=== PATIENT | male | born 1935 | race Caucasian/White ===

== ENCOUNTER 2019-04-15 11:17 | Emergency (ER) | payer OTHER ==
[2019-04-15 11:37] VITALS: BP 147/70; PULSE 55; TEMP 98.5; BMI 23.5
--- NOTE | 2019-04-15 12:03 | PDOC ---
History of Present Illness - General Chief Complaint: Injury Stated Complaint: RIGHT LEG INJURY Time Seen by Provider: 04/15/19 11:40 - History of Present Illness Initial Comments: 04/15/19 17:15 Chief complaint: Pain and swelling right leg HPI: Approximately 5 days ago, the patient banged his milligan, pain and swelling have persisted. There was minor bleeding from abrasions. Review of systems: Denies fever/chills, headache, body aches, malaise, fatigue, chest pain, shortness of breath, abdominal pain, nausea, vomiting, diarrhea, visual or focal neurologic symptoms, unsteadiness of gait, distal numbness tingling pain or weakness in the ankle or foot. Past medical history: Coronary artery disease, multiple stents, maintained on Plavix. Social/family history: No smoking alcohol or nonprescription drugs. Active and without disability. Planning an airplane trip this Sunday to [place] Physical exam: Alert and oriented well-developed well-nourished no acute distress cheerful and cooperative Afebrile, vital signs normal PERRLA, fundi benign, ENT clear Neck supple without bruit mass or nodes Chest clear CV regular without murmur rub or gallop Abdomen benign Neurological intact Right leg: There is erythema, induration ecchymosis, mild tenderness, and fluctuance measuring approximately 6 cm in diameter over the anterior tibia, mid. There are healing abrasions with scab formation x2, approximately 1 cm in diameter. There is 2+ edema of the foot ankle and calf to the knee. There is no deformity or tenderness of the knee ankle or foot. Pulses are full. No distal sensory or motor deficits. Assessment: Contusion, hematoma, possible early cellulitis, rule out DVT Plan: CBC and chemistries, venous Doppler, x-ray, and further evaluation depending on results Past History - Past Medical History Allergies/Adverse Reactions: Allergies Allergy/AdvReac Type Severity Reaction Status Date / Time Penicillins Allergy Unknown Verified 04/15/19 11:19 Home Medications: Ambulatory Orders Amlodipine Besylate [Norvasc -] 10 mg PO DAILY 04/15/19 Cephalexin Monohydrate [Keflex] 500 mg PO Q6H #30 capsule 04/15/19 Clopidogrel Bisulfate [Clopidogrel] 75 mg PO DAILY 04/15/19 Hydrochlorothiazide 12.5 mg PO DAILY 04/15/19 Metoprolol Succinate [Toprol Xl] 25 mg PO DAILY 04/15/19 Rosuvastatin Calcium [Crestor] 20 mg PO DAILY 04/15/19 Cardiac Disorders: Yes (STENT X4) COPD: No HTN: Yes Hypercholesterolemia: Yes - Surgical History Appendectomy: Yes - Psycho Social/Smoking Cessation Hx Smoking History: Never smoked Hx Alcohol Use: No (RARE) Drug/Substance Use Hx: No *Physical Exam - Vital Signs Last Vital Signs Temp Pulse Resp BP Pulse Ox 98.5 F 55 L 16 147/70 98 04/15/19 11:18 04/15/19 11:18 04/15/19 11:18 04/15/19 11:18 04/15/19 11:18 ED Treatment Course - LABORATORY CBC & Chemistry Diagram: 04/15/19 12:15 04/15/19 12:15 Medical Decision Making - Medical Decision Making 04/15/19 13:44 Venous Doppler negative for DVT X-ray shows soft tissue swelling only, no fracture, no gas. Probable hematoma CBC and chemistries with no significant abnormalities, specifically, white blood count is normal. 04/15/19 17:22 The patient was advised not to travel. Even though he is on Plavix and aspirin , there is still a risk of DVT Although this has the appearance of a contusion and hematoma, early cellulitis cannot be excluded, and empiric antibiotics begun Keflex 500 mg 4 times daily Rest elevation warm compresses and wound care as directed. Soaks should soften the scabs and allow for thorough cleaning and dressing with bacitracin. The wound was dressed today with bacitracin, 4 x 4, and Clarence, and instructions given to he and his for further wound care Advised that if the pain worsens, if there is fever or chills, body aches, malaise, fatigue, or other sign of systemic infection that he should return immediately to the ER. Otherwise follow-up with primary physician in 2 days. Fully ambulatory and in no significant pain or other distress at discharge to follow-up as directed Discharge - Discharge Information Problems reviewed: Yes Clinical Impression/Diagnosis: Traumatic hematoma of right lower leg Condition: Stable Disposition: HOME - Admission No - Additional Discharge Information Prescriptions: Cephalexin Monohydrate [Keflex] 500 mg PO Q6H #30 capsule - Follow up/Referral Referrals: Edvin Pierce MD [Primary Care Provider] - 2 Days - Patient Discharge Instructions Patient Printed Discharge Instructions: DI for Hematoma (Bruise) Additional Instructions: Rest, leg elevation, limited standing and walking, warm compresses 3-4 times a day. Antibiotics as directed Wound care as directed Return to ER if there is increasing pain, drainage from the wound, fever/chills , body aches, or any significant symptoms. Otherwise recheck with your primary physician Dr. Haile in 2 to 3 days. - Post Discharge Activity
[2019-04-15 13:11] LABS: BASO % 0.3 % (0-2.0); EOS % 2.5 % (0-4.5); HEMATOCRIT 40.2 % (35.4-49); HEMOGLOBIN 13.5 GM/dl (11.7-16.9); LYMPH % 34.3 % (8-40); MCHC 33.6 g/dl (32.0-35.9); MEAN CELL VOLUME 104.2 fl (80-96); MONO % 12.6 % (3.8-10.2); NEUT % 50.3 % (42.8-82.8); PLATELET COUNT 204 K/MM3 (134-434); RBC 3.86 M/mm3 (4.00-5.60); RDW 13.2 % (11.9-15.9); WHITE BLOOD COUNT 8.3 K/mm3 (4.0-10.8)
[2019-04-15] MEDS ORDERED: CEPHALEXIN MONOHYDRATE 500 MG CAPSULE (UD) PO ONE (13:17)
[2019-04-15 13:18] LABS: ALBUMIN 4.8 g/dl (3.4-5.0); BILIRUBIN,TOTAL 0.6 mg/dl (0.2-1); CREATININE 0.9 mg/dl (0.55-1.3); POTASSIUM 3.9 mmol/L (3.5-5.1); TOT PROT 7.6 g/dl (6.4-8.2)
[2019-04-15] MEDS ORDERED: CEPHALEXIN MONOHYDRATE 500 MG CAPSULE (UD) ONE (13:31)
== END 2019-04-15 13:33 | disposition home or self-care (01) ==
LOC: FER 11:17
DX: S80.11XA Contusion of right lower leg, initial encounter (principal); W22.8XXA Striking against or struck by other objects, initial encounter; Y93.89 Activity, other specified; Y92.89 Other specified places as the place of occurrence of the external cause; Z88.0 Allergy status to penicillin; I10 Essential (primary) hypertension; E78.00 Pure hypercholesterolemia, unspecified; Z95.5 Presence of coronary angioplasty implant and graft
CPT/HCPCS: 36415; 73590-TC-RT-FY; 80053; 85025; 93971-TC; 99282-25

== ENCOUNTER 2023-09-21 23:51 | Inpatient (IN) | payer OTHER ==
[2023-09-22 00:12] VITALS: BMI 23.9
[2023-09-22 00:56] LABS: BASO % 0.3 % (0-2.0); EOS % 2.9 % (0-4.5); HEMATOCRIT 41.6 % (35.4-49); HEMOGLOBIN 14.5 GM/dL (11.7-16.9); LYMPH % 44.3 % (8-40); MCH 35.6 pg (25.7-33.7); MCHC 34.8 g/dl (32.0-35.9); MEAN CELL VOLUME 102.3 fl (80-96); MEAN PLT VOLUME 6.8 fl (7.5-11.1); MONO % 10.7 % (3.8-10.2); NEUT % 41.8 % (42.8-82.8); PLATELET COUNT 244 10^3/uL (134-434); RBC 4.06 M/mm3 (4.00-5.60); RDW 13.9 % (11.9-15.9); WHITE BLOOD COUNT 9.8 K/mm3 (4.0-10.0)
[2023-09-22 01:02] LABS: INR 0.95 (0.83-1.09); PROTHROMBIN TIME (PATIENT) 10.8 SEC (9.7-13.0)
[2023-09-22 01:04] LABS: ACTIVATED PTT 35.1 SECONDS (25.2-36.5)
[2023-09-22 01:14] LABS: POTASSIUM 3.7 mmol/L (3.5-5.1)
[2023-09-22 01:16] LABS: ALBUMIN 4.5 g/dl (3.4-5.0); BLOOD UREA NITROGEN 17.7 mg/dL (7-18); CALCIUM 8.9 mg/dL (8.5-10.1)
[2023-09-22 01:19] LABS: CREATININE 0.9 mg/dL (0.55-1.3)
[2023-09-22 01:21] LABS: BILIRUBIN,TOTAL 0.5 mg/dL (0.2-1); TOT PROT 7.6 g/dl (6.4-8.2)
[2023-09-22 04:43] LABS: BASO % 0.1 % (0-2.0); EOS % 0.2 % (0-4.5); HEMATOCRIT 38.5 % (35.4-49); HEMOGLOBIN 13.4 GM/dL (11.7-16.9); LYMPH % 23.8 % (8-40); MCH 35.4 pg (25.7-33.7); MCHC 34.9 g/dl (32.0-35.9); MEAN CELL VOLUME 101.6 fl (80-96); MEAN PLT VOLUME 6.5 fl (7.5-11.1); MONO % 5.4 % (3.8-10.2); NEUT % 70.5 % (42.8-82.8); PLATELET COUNT 218 10^3/uL (134-434); RBC 3.79 M/mm3 (4.00-5.60); RDW 13.6 % (11.9-15.9); WHITE BLOOD COUNT 11.2 K/mm3 (4.0-10.0)
[2023-09-22] MEDS ORDERED: ACETAMINOPHEN 325 MG TABLET (FP) PO PRN (09:16)
[2023-09-22 09:49] LABS: BASO % 0.4 % (0-2.0); EOS % 0.1 % (0-4.5); HEMATOCRIT 35.2 % (35.4-49); HEMOGLOBIN 12.3 GM/dL (11.7-16.9); LYMPH % 27.5 % (8-40); MCH 35.4 pg (25.7-33.7); MCHC 34.9 g/dl (32.0-35.9); MEAN CELL VOLUME 101.5 fl (80-96); MEAN PLT VOLUME 6.5 fl (7.5-11.1); MONO % 6.1 % (3.8-10.2); NEUT % 65.9 % (42.8-82.8); PLATELET COUNT 220 10^3/uL (134-434); RBC 3.47 M/mm3 (4.00-5.60); RDW 13.7 % (11.9-15.9); WHITE BLOOD COUNT 7.9 K/mm3 (4.0-10.0)
[2023-09-22] MEDS ORDERED: amLODIPine BESYLATE 10 MG TABLET (FP) ONE (09:59)
[2023-09-22] MEDS ORDERED: HYDROCHLOROTHIAZIDE 25 MG TABLET (FP) ONE (09:59)
[2023-09-22] MEDS ORDERED: metoPROLOL SUCCINATE 25 MG TAB.SR.24H (FP) PO ONE (10:00)
[2023-09-22] MEDS: HYDROCHLOROTHIAZIDE 12.5 MG CAPSULE (FP) PO SCH (10:06)
[2023-09-22] MEDS: amLODIPine BESYLATE 10 MG TABLET (FP) PO SCH (10:06)
[2023-09-22] MEDS: metoPROLOL SUCCINATE 25 MG TAB.SR.24H (FP) PO SCH (10:06)
[2023-09-22 11:14] VITALS: TEMP 98
[2023-09-22 19:05] VITALS: BP 131/65; PULSE 64; RESP 18
[2023-09-22] MEDS ORDERED: MUPIROCIN 2% TOPICAL OINTMENT FOR DECOLONIZATION NS SCH (22:00)
[2023-09-22] MEDS ORDERED: CHLORHEXIDINE GLUCONATE 4% CLEANSER FOR DECOLONIZATION TP SCH (22:00)
[2023-09-22] MEDS ORDERED: ROSUVASTATIN CA 20 MG TABLET PO SCH (22:00)
== END 2023-09-22 21:03 | disposition short-term general hospital (02) | DRG 813 ==
LOC: JER 23:51 → JERBED 09-22 04:34
PROVIDERS: ADMIT Internal Medicine; ATTEND Internal Medicine
DX: D68.32 Hemorrhagic disorder due to extrinsic circulating anticoagulants (principal); K57.31 Diverticulosis of large intestine without perforation or abscess with bleeding; I25.10 Atherosclerotic heart disease of native coronary artery without angina pectoris; E78.5 Hyperlipidemia, unspecified; I10 Essential (primary) hypertension; Z95.5 Presence of coronary angioplasty implant and graft; T45.515A Adverse effect of anticoagulants, initial encounter
CPT/HCPCS: 0241U-QW; 36415; 74174-TC; 80053; 82272; 83605; 84484; 85025; 85610; 85730; 86850; 86900; 86901; 93005; 93010; 99285-25; J2597; Q9967